=== PATIENT | female | born 1955 ===

== ENCOUNTER 2024-06-01 09:09 | Emergency (ER) | payer BC ==
[2024-06-01] MEDS ORDERED: predniSONE 10 MG Tab ONE (09:45)
== END 2024-06-01 09:53 | disposition home or self-care (01) ==
LOC: LB.ED 09:09
DX: L23.7 Allergic contact dermatitis due to plants, except food (principal); I10 Essential (primary) hypertension; K21.9 Gastro-esophageal reflux disease without esophagitis; E78.00 Pure hypercholesterolemia, unspecified; E03.9 Hypothyroidism, unspecified; Z79.890 Hormone replacement therapy; Z79.899 Other long term (current) drug therapy; Z90.49 Acquired absence of other specified parts of digestive tract
CPT/HCPCS: 99282; 99283; J7512